=== PATIENT | male | born 1970 | race Caucasian/White ===

== ENCOUNTER 2017-10-09 18:17 | Emergency (ER) | payer OTHER ==
[~2017-10-09] VITALS: Ht 180.3 cm; Wt 85.7 kg
[~2017-10-09 18:17] MED LIST: ALLEGRA-D 24 H1 EACH PO; AMOXICILLIN500 M1; CATAFLAM50 MG PO; CIPRO500 MG PO; FLAGYL500MG PO; ORPH100T PO; PROTONIX40 MG PO; TAMS0.4C; TUSSI-PRES LIQ118 ML PO
[2017-10-10] MEDS ORDERED: FLAGYL500MG PO (03:48)
[2017-10-10] MEDS ORDERED: CIPRO500 MG PO (03:48)
[2017-10-10] MEDS ORDERED: LEVSIN/SL0.125 MG SL (03:48)
== END 2017-10-10 07:35 | disposition home or self-care (01) ==
LOC: ER 18:17
DX: K57.90 Diverticulosis of intestine, part unspecified, without perforation or abscess without bleeding (principal)

== ENCOUNTER 2017-10-21 19:10 | Emergency (ER) | payer OTHER ==
[~2017-10-21] VITALS: Ht 180.3 cm; Wt 85.7 kg
[~2017-10-21 19:10] MED LIST changes: +LEVSIN/SL0.125 MG SL
== END 2017-10-21 23:57 | disposition home or self-care (01) ==
LOC: ER 19:10
DX: K58.9 Irritable bowel syndrome, unspecified (principal)

== ENCOUNTER 2017-12-31 13:14 | Emergency (ER) | payer OTHER ==
[~2017-12-31] VITALS: Ht 180.3 cm; Wt 86.2 kg
[2017-12-31] MEDS ORDERED: TAMS0.4C (13:39)
== END 2017-12-31 16:08 | disposition home or self-care (01) ==
LOC: ER 13:14
DX: K57.90 Diverticulosis of intestine, part unspecified, without perforation or abscess without bleeding (principal); R10.31 Right lower quadrant pain

== ENCOUNTER 2018-04-17 12:25 | Emergency (ER) | payer OTHER ==
[~2018-04-17] VITALS: Ht 180.3 cm; Wt 87.5 kg
[2018-04-17] MEDS ORDERED: ORPHENADRINE C100 MG PO (16:50)
[2018-04-17] MEDS ORDERED: KETO10TA2 PO (16:50)
== END 2018-04-17 16:56 | disposition home or self-care (01) ==
LOC: ER 12:25
DX: K57.90 Diverticulosis of intestine, part unspecified, without perforation or abscess without bleeding (principal); R10.32 Left lower quadrant pain; M54.5 Low back pain

== ENCOUNTER 2018-12-11 09:36 | Emergency (ER) | payer OTHER ==
[~2018-12-11] VITALS: Ht 180.3 cm; Wt 84.4 kg
[~2018-12-11 09:36] MED LIST changes: +KETO10TA2 PO; +ORPHENADRINE C100 MG PO
[2018-12-11] MEDS ORDERED: TAMS0.4C PO (11:25)
[2018-12-11] MEDS ORDERED: ALLEGRA-D 24 H1 EACH PO (11:25)
[2018-12-11] MEDS ORDERED: MIRALAX17 GM PO (11:25)
== END 2018-12-11 11:30 | disposition home or self-care (01) ==
LOC: ER 09:36
DX: K59.09 Other constipation (principal)

== ENCOUNTER → 2018-12-16 | Emergency (ER) | payer OTHER ==
[~2018-12-16] VITALS: Ht 180.3 cm; Wt 85.3 kg
[~2018-12-16] MED LIST changes: +MIRALAX17 GM PO; +POLY119PG; +TAMS0.4C PO
== END | disposition home or self-care (01) ==
LOC: ER 12:45
DX: K58.9 Irritable bowel syndrome, unspecified (principal)

== ENCOUNTER 2019-05-05 10:32 | Emergency (ER) | payer OTHER ==
[~2019-05-05] VITALS: Ht 180.3 cm; Wt 85.3 kg
== END 2019-05-05 14:30 | disposition home or self-care (01) ==
LOC: ER 10:32
DX: K52.9 Noninfective gastroenteritis and colitis, unspecified (principal); R51 Headache

== ENCOUNTER 2019-10-08 14:10 | Emergency (ER) | payer OTHER ==
[~2019-10-08] VITALS: Ht 180.3 cm; Wt 84.8 kg
[2019-10-08] MEDS ORDERED: TAMS0.4C PO (14:38)
== END 2019-10-08 17:49 | disposition home or self-care (01) ==
LOC: ER 14:10
DX: R51 Headache (principal)

== ENCOUNTER 2019-11-03 11:35 | Emergency (ER) | payer OTHER ==
[~2019-11-03] VITALS: Ht 172.7 cm; Wt 72.6 kg
[2019-11-03] MEDS ORDERED: FLAGYL500MG PO (16:32)
[2019-11-03] MEDS ORDERED: LEVSIN/SL0.125 MG SL (16:32)
[2019-11-03] MEDS ORDERED: INTESTINEX680 M2 PO (16:32)
[2019-11-03] MEDS ORDERED: CIPRO500 MG PO (16:32)
== END 2019-11-03 17:13 | disposition home or self-care (01) ==
LOC: ER 11:35
DX: K57.32 Diverticulitis of large intestine without perforation or abscess without bleeding (principal); R10.32 Left lower quadrant pain

== ENCOUNTER 2019-11-16 14:12 | Emergency (ER) | payer OTHER ==
[~2019-11-16] VITALS: Ht 180.3 cm; Wt 84.4 kg
[~2019-11-16 14:12] MED LIST changes: +INTESTINEX680 M2 PO
[2019-11-16] MEDS ORDERED: CARAFATE1 GM/10 ML PO (18:11)
[2019-11-16] MEDS ORDERED: PEPCID AC20 MG PO (18:11)
== END 2019-11-16 18:25 | disposition home or self-care (01) ==
LOC: ER 14:12
DX: R10.13 Epigastric pain (principal)

== ENCOUNTER 2020-04-20 12:07 | Emergency (ER) | payer OTHER ==
[~2020-04-20] VITALS: Ht 180.3 cm; Wt 87.1 kg
[~2020-04-20 12:07] MED LIST changes: +CARAFATE1 GM/10 ML PO; +PEPCID AC20 MG PO
[2020-04-20] MEDS ORDERED: TAMS0.4C (12:38)
== END 2020-04-20 17:04 ==
LOC: ER 12:07
DX: R10.32 Left lower quadrant pain (principal)
CPT/HCPCS: 74177; Q9965

== ENCOUNTER 2020-05-17 11:01 | Emergency (ER) | payer OTHER ==
[~2020-05-17] VITALS: Ht 180.3 cm; Wt 86.2 kg
[2020-05-17] MEDS ORDERED: METRONIDAZOLE500 MG (11:08)
[2020-05-17] MEDS ORDERED: CIPRO500 MG (11:08)
[2020-05-17] MEDS ORDERED: LEVSIN/SL0.125 MG PO (16:37)
[2020-05-17] MEDS ORDERED: CELEBREX100 MG PO (16:37)
[2020-05-17] MEDS ORDERED: AMOX-CLAV 875-1 EACH PO (16:37)
[2020-05-17] MEDS ORDERED: INTESTINEX680 M1 PO (16:37)
[2020-05-17] MEDS ORDERED: PEPCID AC20 MG PO (16:37)
== END 2020-05-17 17:11 | disposition home or self-care (01) ==
LOC: ER 11:01
DX: K57.92 Diverticulitis of intestine, part unspecified, without perforation or abscess without bleeding (principal); R10.32 Left lower quadrant pain; Z03.818 Encounter for observation for suspected exposure to other biological agents ruled out

== ENCOUNTER 2020-05-23 10:01 | Emergency (ER) | payer OTHER ==
[~2020-05-23] VITALS: Ht 180.3 cm; Wt 81.6 kg
[~2020-05-23 10:01] MED LIST changes: +AMOX-CLAV 875-1 EACH PO; +CELEBREX100 MG PO; +CIPRO500 MG; +INTESTINEX680 M1 PO; +LEVSIN/SL0.125 MG PO; +METRONIDAZOLE500 MG
[2020-05-23] MEDS ORDERED: TAMS0.4C (10:21)
[2020-05-23] MEDS ORDERED: MAXALT10 MG PO (13:18)
== END 2020-05-23 14:11 ==
LOC: ER 10:01
DX: G43.809 Other migraine, not intractable, without status migrainosus (principal)

== ENCOUNTER 2020-07-08 09:45 | Inpatient (IN) | payer OTHER ==
[~2020-07-08] VITALS: Ht 180.3 cm; Wt 88.0 kg
[~2020-07-08 09:45] MED LIST changes: +MAXALT10 MG PO
[2020-07-15] MEDS ORDERED: RESTORIL30 MG (10:27)
[2020-07-15] MEDS ORDERED: RIZATRIPTAN10 MG (10:28)
== END 2020-07-18 19:07 | disposition home or self-care (01) | DRG 331 ==
LOC: O/R 07-15 06:00 → SURH 07-15 07:00 → SURG 07-15 16:00
PROVIDERS: ADMIT Surgery; ATTEND Surgery
PROC: 0DTN0ZZ Resection of Sigmoid Colon, Open Approach (ICD-10-PCS; principal; 2020-07-15 07:00)
DX: K57.32 Diverticulitis of large intestine without perforation or abscess without bleeding (principal); F41.8 Other specified anxiety disorders; R10.32 Left lower quadrant pain; R19.7 Diarrhea, unspecified

== ENCOUNTER 2020-09-19 08:39 | Emergency (ER) | payer OTHER ==
[~2020-09-19] VITALS: Ht 180.3 cm; Wt 86.6 kg
[~2020-09-19 08:39] MED LIST changes: +RESTORIL30 MG; +RIZATRIPTAN10 MG
[2020-09-19] MEDS ORDERED: NORFLEX100MG PO (15:00)
[2020-09-19] MEDS ORDERED: KETO10TA2 PO (15:00)
== END 2020-09-19 15:08 | disposition home or self-care (01) ==
LOC: ER 08:39
DX: M25.551 Pain in right hip (principal)

== ENCOUNTER 2020-10-03 19:16 | Emergency (ER) | payer OTHER ==
[~2020-10-03] VITALS: Ht 180.3 cm; Wt 87.5 kg
[~2020-10-03 19:16] MED LIST changes: +NORFLEX100MG PO
[2020-10-03] MEDS ORDERED: TAMS0.4C (19:42)
== END 2020-10-04 00:39 | disposition home or self-care (01) ==
LOC: ER 19:16
DX: R19.7 Diarrhea, unspecified (principal)

== ENCOUNTER 2020-10-07 10:21 | Emergency (ER) | payer OTHER ==
[~2020-10-07] VITALS: Ht 180.3 cm; Wt 84.8 kg
== END 2020-10-07 13:17 | disposition home or self-care (01) ==
LOC: ER 10:21
DX: K52.9 Noninfective gastroenteritis and colitis, unspecified (principal)

== ENCOUNTER 2021-03-16 14:38 | Emergency (ER) | payer OTHER ==
[~2021-03-16] VITALS: Ht 180.3 cm; Wt 86.2 kg
[2021-03-16] MEDS ORDERED: ZITHROMAX100 MG/51 PO (15:15)
[2021-03-16] MEDS ORDERED: ZYNCOF 400-201 EACH PO (15:15)
[2021-03-21] MEDS ORDERED: TAMS0.4C PO (11:36)
== END 2021-03-16 17:55 | disposition home or self-care (01) ==
LOC: ER 14:38
DX: U07.1 COVID-19 (principal)

== ENCOUNTER → 2021-03-21 | Emergency (ER) | payer OTHER ==
[~2021-03-21] VITALS: Ht 180.3 cm; Wt 86.2 kg
[~2021-03-21] MED LIST changes: +ZITHROMAX100 MG/51 PO; +ZYNCOF 400-201 EACH PO
== END | disposition home or self-care (01) ==
LOC: ER 11:05
DX: N39.8 Other specified disorders of urinary system (principal)

== ENCOUNTER → 2022-06-03 | Emergency (ER) | payer OTHER ==
[~2022-06-03] VITALS: Ht 180.3 cm; Wt 85.7 kg
== END | disposition home or self-care (01) ==
LOC: ER 14:29 → EMR PED 14:32
DX: S01.312A Laceration without foreign body of left ear, initial encounter (principal); W45.8XXA Other foreign body or object entering through skin, initial encounter; Y93.67 Activity, basketball; Y92.89 Other specified places as the place of occurrence of the external cause; Y99.9 Unspecified external cause status

== ENCOUNTER 2022-11-18 14:57 | Emergency (ER) | payer OTHER ==
[~2022-11-18] VITALS: Ht 172.7 cm; Wt 87.5 kg
== END 2022-11-18 19:37 | disposition home or self-care (01) ==
LOC: ER 14:57
DX: K29.70 Gastritis, unspecified, without bleeding (principal)

== ENCOUNTER 2023-04-01 10:08 | Emergency (ER) | payer OTHER ==
[~2023-04-01] VITALS: Ht 180.3 cm; Wt 83.9 kg
[2023-04-01 15:20] LABS: HEMATOCRIT 45.3 % (39.0-48.0); HEMOGLOBIN 15.4 g/dL (13-16.00); MEAN CORPUSCULAR HGB CONC 34.1 g/dl (32.0-36.0); PLATELET COUNT 295 K/uL (150-450); RED BLOOD COUNT 5.15 M/uL (4.00-6.00); RED CELL DISTRIBUTION WIDTH 12.3 % (11.5-14.5)
[2023-04-01 15:26] LABS: ERYTHROCYTE SEDIMENTATION RATE 5 mm/hr
[2023-04-01 15:41] LABS: CALCIUM 9.7 mg/dL (8.5-10.1); CREATININE SERUM 0.88 mg/dL (0.70-1.30); GFR 89.91; POTASSIUM 3.82 mEq/L (3.5-5.1)
== END 2023-04-01 17:14 | disposition home or self-care (01) ==
LOC: ER 10:10
PROVIDERS: General Practice
DX: K64.9 Unspecified hemorrhoids (principal)

== ENCOUNTER 2025-03-08 09:48 | Emergency (ER) | payer OTHER ==
[~2025-03-08] VITALS: Ht 152.4 cm; Wt 85.7 kg
[2025-03-08] MEDS ORDERED: HYOSCYAMINE SULFATE 0.125 MG TAB.SUBL SL ONE (13:30)
[2025-03-08] MEDS ORDERED: HYOSCYAMINE SULFATE 0.125 MG TAB.SUBL ONE (13:59)
[2025-03-08 14:20] LABS: BASO % 0.7 % (0.1-1.2); EOS # 0.18 (0.04-0.54); EOS % 3.1 % (0.7-7.0); LYMPH # 1.30 (1.18-3.74); LYMPH % 22.6 % (19.3-53.1); MEAN PLATELET VOLUME 9.30 fl (9.4-12.4); MONO # 0.40 (0.24-0.82); MONO % 7.0 % (4.7-12.5); NEUT # 3.82 (1.56-6.13); NEUT % 66.4 % (34.0-71.1); RED CELL DISTRIBUTION WIDTH 12.2 % (11.6-14.4)
[2025-03-08 14:53] LABS: ALT/SGPT 45.0 U/L (12-78); AST/SGOT 23.0 U/L (15-37); BILIRUBIN TOTAL 0.53 mg/dL (0.3-1.2); BUN CREA RATIO 20.0 (7.0-25.0); CREATININE SERUM 0.71 mg/dL (0.70-1.30); GFR 114.76; GLOBULINA 3.9 G/DL (2.4-3.5); GLUCOSE FASTING 99.0 mg/dL (65-100); OSMOLALITY SERUM 284.0 MOSM/KG (275-295)
== END 2025-03-08 15:21 | disposition home or self-care (01) ==
LOC: ER 09:49
PROVIDERS: General Practice
DX: K58.9 Irritable bowel syndrome, unspecified (principal); R10.9 Unspecified abdominal pain